=== PATIENT | female | born 1965 | race American Indian/Alaskan Native ===

== ENCOUNTER 2020-03-20 13:07 | Outpatient (CLI) | payer MEDICARE ==
--- NOTE | 2020-03-21 09:48 | Magnetic Resonance Report ---
Bilateral breast MR without and with contrast. History: Personal history of left breast papilloma. Comparison: 03/07/2020 Technique: Multiplanar multisequence MR images of the breast were obtained before and after the intra venous administration of intravenous contrast. Post processing analysis and review was performed on a separate computer workstation. Findings: Breast composition is heterogenously dense. There is minimal background parenchymal enhancement bila terally. No enhancing mass, dominant focus, or other abnormal enhancement is identified within either breast. No abnormal axillary or internal mammary lymph nodes. Impression: No evidence of breast malignancy. BIRADS 1: Negative. A normal MRI does not exclude the presence of some forms of breast malignancy as literature reports s uggest that some forms of ductal carcinoma in situ or lobular carcinoma, particularly, may not be det ected on MRI. The sensitivity and specificity of MRI for cancers under 5 mm may be reduced. MRI does not replace the recommendation for annual conventional mammographic evaluation and should be used as an adjunct to mammography and physical examination as necessary. Signer Name: Manuel Cardona MD Signed: 03/21/2020 9:43 AM Workstation Name: [id number]
== END 2020-03-20 13:08 | disposition home or self-care (01) ==
LOC: SPVIMAG 13:07
PROVIDERS: ATTEND Surgery
DX: N64.4 Mastodynia (principal); R92.8 Other abnormal and inconclusive findings on diagnostic imaging of breast
CPT/HCPCS: A9577; C8908; 77049

== ENCOUNTER 2020-10-18 12:59 | Outpatient (CLI) | payer MEDICARE ==
--- NOTE | 2020-10-18 14:31 | Ultrasound Report ---
LEFT DIGITAL DIAGNOSTIC MAMMOGRAM WITH CAD CONVENTIONAL, 10/18/2020 LEFT LIMITED BREAST ULTRASOUND CLINICAL INFORMATION / INDICATION: Left breast pain, skin changes TECHNIQUE: Digital left mammographic imaging was performed. Limited ultrasound was performed. This ex amination was interpreted with the benefit of Computer-Aided Detection (CAD) analysis. COMPARISON: 03/07/2020 FINDINGS: Breast Density: The breasts are heterogeneously dense, which may obscure small masses. MAMMOGRAPHIC FINDINGS: No significant changes are seen. ULTRASOUND FINDINGS: Targeted ultrasound evaluation was performed of the area of interest. No abnorma lities are seen in the area of reported pain. (Communicated with technologist.) IMPRESSION: No mammographic or sonographic evidence of malignancy. Follow up recommendation: Clinical follow-up BI-RADS Category 1: Negative. A "normal" or negative report should not discourage follow up or biopsy of a clinically significant f inding. A written summary of these findings will be mailed to the patient. The patient will be entered into a mammography reporting system which will generate a reminder letter for the patient's next appointmen t at the appropriate interval. According to the [employer], yearly mammograms are recommended starting at age 40 and continuing as long as a woman is in good health. Breast MRI is recommended for women with an jerry roximately 20-25% or greater lifetime risk of breast cancer, including women with a strong family his tory of breast or ovarian cancer and women who have been treated for Hodgkin's disease. Signer Name: Rui Valverde MD Signed: 10/18/2020 2:26 PM Workstation Name: [id number]
== END 2020-10-18 13:00 | disposition home or self-care (01) ==
LOC: SPVWC 12:59
PROVIDERS: ATTEND Surgery
DX: R92.0 Mammographic microcalcification found on diagnostic imaging of breast (principal); N64.4 Mastodynia; D24.2 Benign neoplasm of left breast